=== PATIENT | male | born 1950 | race Caucasian/White ===

== ENCOUNTER 2016-04-29 07:43 | Day surgery (SDC) | payer BC ==
--- NOTE | 2016-04-24 16:57 | PREOPHP ---
DATE OF ADMISSION: 04/29/2016 HISTORY OF PRESENT ILLNESS: This 66-year-old patient is admitted for elective cataract surgery of t he right eye. Patient has had decreased vision for a period of 1 year without prior history of eye disease or injury. The patient's systemic history is positive for wgt-dafkygf-hfnkjrbxf diabetes me llitus and systemic hypertension. CURRENT MEDICATIONS: Includes: 1. Metformin. 2. Aspirin. 3. Antihypertensive medication. ALLERGIES: THERE ARE NO KNOWN ALLERGIES. PHYSICAL EXAMINATION: Visual acuity best corrected is 20/200 in the right eye and 20/40 in the left eye. Slit lamp examination reveals advanced nuclear sclerotic cataract greater in the right eye th an the left eye. Applanation tonometry is 17 mmHg in both eyes. Examination of the retina reveals a hazy view in the right eye, appears grossly normal. The left eye appears entirely within normal l imits. DIAGNOSIS: Cataract, right eye. PLAN: Cataract extraction with lens implant, right eye. The risks and alternatives to the surgery have been discussed with the patient as well as the hope for improvement of visual acuity leading to a greater ability to perform activities of daily living. The patient understands this and agrees t o proceed with surgery. Dictated By: ULYSSES SEYMOUR/BETZY Conf#: [id number] DID#: [id number]
[~2016-04-29] VITALS: Ht 162.6 cm; Wt 70.4 kg
[2016-04-29] VITALS (8 sets, daily range): BP systolic 95–136; BP diastolic 54–71; PULSE 57–74; RESP 11–20; Ht 162.6 cm; Wt 70.4 kg
--- NOTE | 2016-04-29 08:17 | HPN ---
Date/Time of Note Date/Time of Note DATE: 04/29/16 TIME: 08:17 Interval H&P Admission Note Pt. seen H&P reviewed: No system changes ULYSSES INIGUEZ MD Apr 29, 2016 08:17
[2016-04-29] MEDS ORDERED: TROPICAMIDE 1% 2 ML OPH OPER SCH (08:30)
[2016-04-29] MEDS ORDERED: DICLOFENAC 0.1% 2.5 ML OPH OPER SCH (08:30)
[2016-04-29] MEDS ORDERED: CYCLOPENTOLATE/PHENYLEPH 2 ML OPH OPER SCH (08:30)
[2016-04-29] MEDS ORDERED: CIPROFLOXACIN 0.3% 2.5 ML OPH OPER SCH (08:30)
[2016-04-29] MEDS ORDERED: DEXAMETHASONE 4 MG/ML 1 ML INJ ONE (10:13)
[2016-04-29] MEDS ORDERED: HYALURONATE/CHONDROITIN 1ML OPH INJ ONE (10:13)
[2016-04-29] MEDS ORDERED: CARBACHOL 0.01% 1.5 ML OPH INJ ONE (10:13)
[2016-04-29] MEDS ORDERED: LIDOCAINE 4% (MPF) 5 ML INJ ONE (10:13)
[2016-04-29] MEDS ORDERED: FENTAnyl 50 MCG/ML VIAL ONE (10:33)
[2016-04-29] MEDS ORDERED: LIDOCAINE 1% (MPF) 10 ML INJ ONE (10:46)
[2016-04-29] MEDS ORDERED: CEFAZOLIN 1 GM INJ INJ ONE (10:56)
[2016-04-29] MEDS ORDERED: METOCLOPRAMIDE 10 MG INJ IV PRN (11:00)
[2016-04-29] MEDS ORDERED: DIPHENHYDRAMINE 50 MG INJ IV PRN (11:00)
[2016-04-29] MEDS ORDERED: FENTAnyl 50 MCG/ML VIAL IV PRN ×2 (11:00)
[2016-04-29] MEDS ORDERED: MEPERIDINE 25 MG INJ IV PRN (11:00)
[2016-04-29] MEDS ORDERED: ONDANSETRON 4 MG INJ IV PRN (11:00)
--- NOTE | 2016-04-29 11:37 | OPR ---
DATE OF OPERATION: 04/29/2016 PREOPERATIVE DIAGNOSIS: Cataract, right eye. POSTOPERATIVE DIAGNOSIS: Cataract, right eye. OPERATION PERFORMED: Cataract extraction with lens implant, right eye. SURGEON: Ulysses Carter MD ANESTHESIA: Local standby. ANESTHESIOLOGIST: Dr. Aponte DESCRIPTION OF OPERATION: The patient was brought to the operating room and placed on the table wit h an IV in place and the patient attached to an environmental monitoring technician. Oxygen was given via face mask. After some intravenous sedation was administered, local anesthesia was given using Xylocaine 2% with epinephrine, mixed with Marcaine 0.5%. This was given in a lid block and retrobulbar injection. The patient was then prepped and draped in the usual sterile manner. A wire lid speculum was inserted between the lids of the right eye. A Superblade was used to enter t he anterior chamber at the corneoscleral limbus at the 10:30 o'clock position. A separate incision w as made using a 3.0-mm keratome which entered the corneoscleral junction at the 12 o'clock position. Through this 3-mm opening, an irrigating cystotome was introduced into the anterior chamber. The ch cheryl was filled with Viscoat and an anterior capsulotomy was performed. Balanced salt solution was then used for hydrodissection of the lens. A phacoemulsification handpiece was then brought into th e field and introduced into the anterior chamber. The lens nucleus was emulsified using a deep groov e and cracking the nucleus into quadrants. Following this, each quadrant was aspirated and emulsifie d at the pupillary margin. After this was completed, the irrigation/aspiration handpiece was brought to the field, introduced i nto the posterior chamber, and the lens cortical material was removed. When this was completed, herminio tional Viscoat was injected into the anterior and posterior chambers. The 3-mm opening had its internal lips enlarged, and then the posterior chamber intraocular lens kenneth suring 22.5 diopters (Bausch and Lomb model LI61OA)was then injected into the posterior chamber usin g the lens injector system. After the leading haptic was introduced into the capsular bag and the le ns optic was present in the center of the eye, the injector was removed and the trailing haptic was grasped with non-toothed forceps and introduced into the capsular fold superiorly. A Sinskey hook wa s then used to rotate the intraocular lens so that the lips were oriented in the horizontal meridian . One 10-0 nylon suture was placed across the wound. Prior to tying, the irrigation/aspiration handpiece was reintroduced into the anterior chamber to re move the Viscoat. Miochol was instilled to constrict the pupil, and then the 10-0 nylon suture was t ied. The ends were cut short and then the knot was buried. Then, 0.5 mL of dexamethasone and 0.5 mL of Ancef were injected into the sub-Tenon space in the infe rior fornix. Ciloxan drops were then placed on the surface of the eye. The speculum was removed and a patch was applied. The patient then left the operating room in satisfactory condition. Dictated By: ULYSSES SEYMOUR/BETZY Conf#: [id number] DID#: [id number]
[2016-04-29] MEDS ORDERED: PROPOFOL 20 ML ONE (11:49)
== END 2016-04-29 12:20 | disposition home or self-care (01) ==
LOC: SDS 07:43
PROVIDERS: ATTEND Ophthalmology
DX: H25.11 Age-related nuclear cataract, right eye (principal); E11.9 Type 2 diabetes mellitus without complications; E78.5 Hyperlipidemia, unspecified; I10 Essential (primary) hypertension
CPT/HCPCS: 66984; 82962; J0690; J1100; J3010; V2632; Z7512; Z7610

== ENCOUNTER 2017-03-24 09:19 | Day surgery (SDC) | payer BC ==
--- NOTE | 2017-03-23 12:49 | PREOPHP ---
DATE OF ADMISSION: 03/24/2017 HISTORY OF PRESENT ILLNESS: This 66-year-old patient is admitted for elective cataract surgery of t he left eye. The patient has had decreased vision in both eyes for approximately 1 year and in 04/14 017 underwent cataract surgery of the right eye with excellent visual result. The patient's systemi c history is positive for a cjv-uxianrq-rvnakxbnd diabetes mellitus and systemic hypertension. CURRENT MEDICATIONS INCLUDE: 1. Metformin. 2. Lisinopril. ALLERGIES: THERE ARE NO KNOWN ALLERGIES. PHYSICAL EXAMINATION: The visual acuity with correction is 20/30 in the right eye and 20/40 in the left eye. Slit lamp examination reveals a posterior chamber intraocular lens in the right eye and a nuclear sclerotic cataract with posterior subcapsular opacity in the left eye. Applanation tonomet ry is 16 mmHg. Examination of the retina is within normal limits. DIAGNOSIS: Cataract, left eye. PLAN: Cataract extraction with lens implant, left eye. The risks and alternatives to the surgery h ave been discussed with the patient as well as the hope for improvement of visual acuity leading to a greater ability to perform activities of daily living. Patient understands this and agrees to pro ceed with surgery. Dictated By: ULYSSES SEYMOUR/BETZY Conf#: [id number] DID#: [id number]
[~2017-03-24] VITALS: Ht 162.6 cm; Wt 72.1 kg
[~2017-03-24 09:19] MED LIST: BROMFENAC SODIUM 1.7 ML OPH DROP OPER SCH; CYCLOPENTOLATE/PHENYLEPH 2 ML OPH OPER SCH; MOXIFLOXACIN 0.5% 3 ML OPH OPER SCH; SOD CHLORIDE 0.9% 1,000 ML IV SCH; TROPICAMIDE 1% 3 ML OPH OPER SCH
[2017-03-24] MEDS ORDERED: METF500T4 PO (09:47)
[2017-03-24 10:10] VITALS: Ht 162.6 cm; Wt 72.1 kg
[2017-03-24] MEDS ORDERED: GENTAMICIN 80 MG INJ ONE (10:10)
[2017-03-24] MEDS ORDERED: EPINEPHrine 1 MG INJ ONE (10:10)
[2017-03-24] MEDS ORDERED: CEFAZOLIN 1 GM INJ ONE (10:10)
[2017-03-24] MEDS ORDERED: LIDOCAINE 4% (MPF) 5 ML INJ ONE (10:10)
[2017-03-24] MEDS ORDERED: CARBACHOL 0.01% 1.5 ML OPH INJ ONE (10:10)
[2017-03-24] MEDS ORDERED: DEXAMETHASONE 4 MG/ML 1 ML INJ ONE (10:10)
[2017-03-24 10:11] VITALS: BP 123/65; PULSE 74; RESP 16
--- NOTE | 2017-03-24 11:00 | RADRPT ---
PROCEDURE: XR Chest. CLINICAL INDICATION: Preop TECHNIQUE: Single AP portable chest. COMPARISON: No prior Chest x-ray FINDINGS: The cardiomediastinal silhouette is within normal limits of size. Minimal bibasilar subsegmental ate lectasis. The lungs are clear without pleural effusion or focal consolidation. No pneumothorax. The osseous structures and soft tissues are unremarkable. IMPRESSION: 1. No evidence for active cardiopulmonary disease. RPTAT:AAJJ Physician Faizan Date Time Electronically viewed and signed by Physician Faizan on 03/24/2017 11:00 ASHOK/
--- NOTE | 2017-03-24 11:54 | SIPON ---
Date/Time of Note Date/Time of Note DATE: 03/24/17 TIME: 11:53 Operative Report Preoperative Diagnosis cataract od Postoperative Diagnosis same Operation/Procedure Performed cataract implant surgery Surgeon see signature line medical laboratory assistant none Anesthesia: MAC Estimated blood loss: none Transfusion Required none Specimen none Grafts/Implants posterior chamber lens implant Complications none ULYSSES INIGUEZ MD Mar 24, 2017 11:54
[2017-03-24 12:02] VITALS: BP 119/74; PULSE 72; RESP 14
[2017-03-24 12:07] VITALS: BP 113/69; PULSE 72; RESP 14
[2017-03-24] MEDS ORDERED: LIDOCAINE 2% (SDV) 5 ML INJ ONE (12:07)
[2017-03-24] MEDS ORDERED: PROPOFOL 20 ML ONE (12:08)
[2017-03-24 12:12] VITALS: BP 113/71; PULSE 69; RESP 14
--- NOTE | 2017-03-24 12:12 | OPR ---
DATE OF OPERATION: 03/24/2017 PREOPERATIVE DIAGNOSIS: Cataract, left eye. POSTOPERATIVE DIAGNOSIS: Cataract, left eye. PROCEDURE: Cataract extraction with lens implant, left eye. SURGEON: Ulysses Carter M.D. ANESTHESIOLOGIST: Dr. Silva. OPERATION: Phacoemulsification with posterior chamber intraocular lens implant, left eye. PROCEDURE: The patient was brought to the operating room and placed on the table with an IV in plac e and the patient attached to an biztalk architect. Oxygen was given via face mask. After some intravenous sedation was administered, local anesthesia was given using Xylocaine 2% with epinephrine, mixed with Marcaine 0.5%. This was given in a lid block and retrobulbar injection. The patient was then prepped and draped in the usual sterile manner. A wire lid speculum was inserted between the lids of the left eye. A Superblade was used to enter th e anterior chamber at the corneoscleral limbus at the 10:30 o'clock position. A separate incision wa s made using a 3.0-mm keratome which entered the corneoscleral junction at the 12 o'clock position. Through this 3-mm opening, an irrigating cystotome was introduced into the anterior chamber. The aaron mber was filled with Viscoat and an anterior capsulotomy was performed. Balanced salt solution was t hen used for hydrodissection of the lens. A phacoemulsification handpiece was then brought into the field and introduced into the anterior chamber. The lens nucleus was emulsified using a deep groove and cracking the nucleus into quadrants. Following this, each quadrant was aspirated and emulsified at the pupillary margin. After this was completed, the irrigation/aspiration handpiece was brought to the field, introduced i nto the posterior chamber, and the lens cortical material was removed. When this was completed, herminio tional Viscoat was injected into the anterior and posterior chambers. The 3-mm opening had its internal lips enlarged, and then the posterior chamber intraocular lens kenneth suring 22.5 diopters ([employer] model LI61A0) was then injected into the posterior chamber using the lens injector system. After the leading haptic was introduced into the capsular b ag and the lens optic was present in the center of the eye, the injector was removed and the trailin g haptic was grasped with non-toothed forceps and introduced into the capsular fold superiorly. A Si nskey hook was then used to rotate the intraocular lens so that the lips were oriented in the horizo ntal meridian. One 10-0 nylon suture was placed across the wound. Prior to tying, the irrigation/aspiration handpiece was reintroduced into the anterior chamber to re move the Viscoat. Miochol was instilled to constrict the pupil, and then the 10-0 nylon suture was t ied. The ends were cut short and then the knot was buried. Then, 0.5 mL of dexamethasone and 0.5 mL of Ancef were injected into the sub-Tenon space in the infe rior fornix. Ciloxan drops were then placed on the surface of the eye. The speculum was removed and a patch was applied. The patient then left the operating room in satisfactory condition. Dictated By: ULYSSES SEYMOUR/BETZY Conf#: [id number] DID#: [id number]
[2017-03-24 12:41] VITALS: BP 129/74; PULSE 76; RESP 18
== END 2017-03-24 13:00 | disposition home or self-care (01) ==
LOC: SDS 09:19
PROVIDERS: ATTEND Ophthalmology
DX: H25.12 Age-related nuclear cataract, left eye (principal)
CPT/HCPCS: 66984; 71010; 82962; J0171; J0690; J1100; J1580; V2632; Z7512; Z7610